=== PATIENT | male | born 1965 | race Caucasian/White ===

== ENCOUNTER → 2020-02-27 15:37 | Outpatient (CLI) | payer OTHER, SELFPAY ==
[2020-02-27 17:47] LABS: Add Manual Diff / Slide Review NO; Basophils Absolute Auto 0 /uL (0-100); Basophils Percent Auto 0.5 % (0-2); Eosinophils Absolute Auto 200 /uL (0-450); Eosinophils Percent Auto 3.4 % (2-4); Hematocrit 43.3 % (41-53); Hemoglobin 15.5 g/dL (13.5-17.5); Lymphocytes Absolute Auto 1400 /uL (1100-4500); Lymphocytes Percent Auto 19.7 % (25-40); Mean Corpuscular HGB Conc 35.9 % (30-36); Mean Corpuscular Hemoglobin 34.6 PG (26-34); Mean Corpuscular Volume 96.6 fL (80-100); Monocytes Absolute Auto 500 /uL (0-900); Monocytes Percent Auto 6.7 % (3-14); Neutrophils Absolute Auto 4900 /uL (1500-7000); Neutrophils Percent Auto 69.7 % (50-75); Platelet Count 158 X10^3/uL (150-400); Red Blood Cell Count 4.48 X10^6/uL (4.5-5.9); Red Cell Distribution Width 12.1 % (11.6-14.8); White Blood Cell Count 7.1 X10^3/uL (4.5-11.0)
[2020-02-27 18:42] LABS: Alanine Aminotransferase 131 IU/L (<50); Albumin 4.8 g/dL (3.5-5.0); Albumin Globulin Ratio 1.8 (1.0-2.8); Alkaline Phosphatase 69 U/L (38-126); Aspartate Aminotransferase 124 IU/L (17-59); BUN Creatinine Ratio 16.5 (6-22); Bilirubin Total 0.4 mg/dL (0.2-1.3); Blood Urea Nitrogen 15 mg/dL (9-20); Calcium 9.9 mg/dL (8.4-10.2); Carbon Dioxide 27 mmol/L (22-32); Chloride 102 mmol/L (98-107); Estimated Glomerular Filt Rate > 60.0 mL/min (>60); Globulin 2.7 g/dL (1.7-4.1); Glucose 196 mg/dL (70-100); HEMOLYSIS < 15 (0-50); Potassium 4.2 mmol/L (3.4-5.1); Sodium 139 mmol/L (137-145); Total Protein 7.5 g/dL (6.3-8.2)
[2020-02-27 19:07] LABS: TSH w/ Reflex to FT4 3.22 uIU/mL (0.47-4.68)
== END ==
PROVIDERS: PCP Internal Medicine; Referring Provider Internal Medicine; Visit Provider Internal Medicine
DX: F32.9 Major depressive disorder, single episode, unspecified (principal); I10 Essential (primary) hypertension
CPT/HCPCS: 36415; 80053; 84443; 85025

== ENCOUNTER → 2020-03-12 11:15 | Outpatient (CLI) | payer OTHER, SELFPAY ==
[2020-03-12 12:17] LABS: Creatine Kinase 197 U/L (55-170)
[2020-03-12 12:24] LABS: Hemoglobin A1C% w Est Avg Glu 6.3 % (4.0-6.0)
[2020-03-12 12:48] LABS: HEMOLYSIS < 15 (0-50); Iron 153 ug/dL (49-181)
[2020-03-12 12:59] LABS: Percent Iron Saturation 52 % (20-50); Total Iron Binding Capacity 296 ug/dL (261-462); Transferrin 264 mg/dL (206-381)
[2020-03-12 16:44] LABS: Hepatitis B Surface Antigen NEGATIVE s/c (NEGATIVE)
[2020-03-12 17:06] LABS: Hep C Virus Ab w/Reflex Quant NEGATIVE s/c (NEGATIVE)
[2020-03-13 03:11] LABS: Hepatitis B Surf Ab Qualitativ Non Reactive (.)
[2020-03-13 07:40] LABS: Ceruloplasmin 20.6 mg/dL (16.0-31.0)
[2020-03-14 13:10] LABS: Smooth Muscle Antibody 4 Units (0-19)
[2020-03-15 03:39] LABS: Deamidated Gliadin IgA 7 units (0-19); Deamidated Gliadin IgG 4 units (0-19); IGA 358 mg/dL (90-386); t-Transglutaminase IgA 3 U/mL (0-3)
[2020-03-15 11:13] LABS: ANA Screen, IFA Positive (.)
== END ==
PROVIDERS: PCP Internal Medicine; Referring Provider Internal Medicine; Visit Provider Internal Medicine
DX: R73.9 Hyperglycemia, unspecified (principal); R74.0 Nonspecific elevation of levels of transaminase and lactic acid dehydrogenase [LDH]; R94.5 Abnormal results of liver function studies
CPT/HCPCS: 36415; 82390; 82550; 82784; 83036; 83516; 83540; 83550; 86038; 86706; 86803; 87340

== ENCOUNTER → 2020-06-29 09:30 | Outpatient (CLI) | payer OTHER, SELFPAY ==
--- NOTE | 2020-06-29 15:08 | DIET.PN ---
Dietary Progress Note Assessment: 55y M attending telehealth appt to address preDM and HTN Pt works [place] the road, pt has goals to get BP under control (currently 136/79), has high stress job for past 5y, working 14h/d, 2 beers and 2 tequilas has been cutting back, though. rarely eats deep fried foods, not fast food eater, not much processed foods Pt used to work out more but does walk 5-7mi per day on job site. Pt lives in corporate housing right now in [place] but generally works from [place] to [place], not often home in [place]. Usual Day: wakes 3am water, [address] 5:30am sits at desk- coffee, 2 sugars, organic half and half, a couple hard boiled eggs 8am pb+j or chobani yogurt c fruit (watermelon and cantaloupe, apples, grapes, strawberries, blueberries) 11am-1pm: packs lunch- turkey sandwich c avina- sourdough, crackers-Ritz or cheez-its, has one 12oz can cocacola on work days 6pm dinner: salmon (4x/w) c broccoli, brussels sprouts, cauliflower, sometimes leo rice or same but c chicken breasts sometimes has guilty pleasure of mini cupcakes HT: 5'9 WT: 210# pt is happy at current body weight Labs: FBG 190s, A1c 6.3 H Nutrition Diagnosis: excessive intake carbohydrates r/t nutrition related knowledge deficit aeb pt consumes 100g CHO for lunch daily, FBG 190s, A1c 6.4, pt focused on getting enough protein, but not thinking about carb intake, daily cola habit. Interventions: 1. Discussed etiology of preDM as BG, A1c, ways to decrease insulin resistance. Discussed carb containing foods and limiting to 45g per meal. 2. Educated pt on balanced plate focusing on 1/4 pro, 1/4 carb, 1/2 f/v. Pts breakfast and lunch follow this balance but his lunch is carb heavy and low in protein and has no f/v. Pt will incorporate carrot sticks c hummus or guacamole instead of crackers and will switch to 8oz cans of cola for now. 3. Discussed role of physical activity in insulin sensitivity, pt currently walking 5-7mi per day on the job but no intentional weight training. Pt will start body weight exercises two to three times per week. 4. Pt is actively cutting down on etoh from 4 drinks to 2 at this point and considering further reduction. EER: 45g CHO per meal, 2g Na per day Monitoring/Evaluations: pt will call for f/u when back in town and seeing Paz at same time
== END ==
PROVIDERS: PCP Internal Medicine; Referring Provider Internal Medicine; Visit Provider Internal Medicine
DX: R73.03 Prediabetes (principal); I10 Essential (primary) hypertension; Z71.3 Dietary counseling and surveillance
CPT/HCPCS: 97802

== ENCOUNTER → 2020-11-15 10:42 | Outpatient (CLI) | payer OTHER, SELFPAY ==
[2020-11-15 11:34] LABS: Hemoglobin A1C% w Est Avg Glu 5.9 % (4.0-6.0)
[2020-11-15 11:37] LABS: Alanine Aminotransferase 54 IU/L (<50); Albumin 4.8 g/dL (3.5-5.0); Albumin Globulin Ratio 1.5 (1.0-2.8); Alkaline Phosphatase 66 U/L (38-126); Aspartate Aminotransferase 36 IU/L (17-59); BUN Creatinine Ratio 23.7 (6-22); Bilirubin Total 0.5 mg/dL (0.2-1.3); Bilirubin Unconjugated 0.6 mg/dL (0.0-1.1); Blood Urea Nitrogen 22 mg/dL (9-20); Carbon Dioxide 24 mmol/L (22-32); Chloride 104 mmol/L (98-107); Estimated Glomerular Filt Rate > 60.0 mL/min (>60); Globulin 3.3 g/dL (1.7-4.1); Glucose 165 mg/dL (70-100); HEMOLYSIS < 15 (0-50); Potassium 4.1 mmol/L (3.4-5.1); Sodium 139 mmol/L (137-145); Total Protein 8.1 g/dL (6.3-8.2)
== END ==
PROVIDERS: PCP Internal Medicine; Referring Provider Internal Medicine; Visit Provider Internal Medicine
DX: I10 Essential (primary) hypertension (principal); R73.03 Prediabetes
CPT/HCPCS: 36415; 80048; 80076; 83036